=== PATIENT | female | born 1955 | race Caucasian/White ===

== ENCOUNTER → 2017-06-07 | Outpatient (CLI) | payer OTHER ==
[~2017-06-07] MED LIST: ATR10 PO; DIA5 PO; FLU20 PO; HYDR-4225 PO; LEV112 PO; LEV125 PO; LISI-368 PO; ONDA4TAB PO
--- NOTE | 2017-06-08 12:21 | RADIOLOGY IMAGING REPORT ---
FACILITY: [facility] PATIENT NAME: JESUS SAGE : [id number] MR: [id number] V: [id number] EXAM DATE: [id number] ORDERING PHYSICIAN: LACEY FATIMA TECHNOLOGIST: Di Wang PROCEDURE:BILATERAL DIGITAL SCREENING MAMMOGRAM WITH CAD ASSISTED INTERPRETATION & 3D TOMOSYNTHESIS COMPARISON:Dated 01/20/2016, 01/26/2012 & 09/03/2010 are available TECHNIQUE: Routine CC & MLO 3D tomographic images were obtained of both breasts. CAD was used. BREAST DENSITY: Scattered fibroglandular densities. INDICATIONS:screening FINDINGS: There is no dominant mass, suspicious cluster of calcifications or persistent areas of architectural distortion. DIAGNOSTIC CATEGORY 1--NEGATIVE. RECOMMENDATIONS: ROUTINE MAMMOGRAM AND CLINICAL EVALUATION IN 1 YR IMPRESSION: BIRADS 1: Negative. Dictated by: Edwardo Glynn M.D. on 06/08/2017 at 8:49 Transcribed by: NATHALY on 06/08/2017 at 11:48 Approved by: Edwardo Glynn M.D. on 06/08/2017 at 12:20 [facility]
== END ==
LOC: MAMO 01:04
PROVIDERS: ATTEND Physician Assistant
DX: Z12.31 Encounter for screening mammogram for malignant neoplasm of breast (principal)
CPT/HCPCS: 77063; 77067

== ENCOUNTER → 2017-10-08 | Outpatient (CLI) | payer OTHER ==
--- NOTE | 2017-10-08 13:01 | RADIOLOGY IMAGING REPORT ---
FACILITY: [facility] - [place] PATIENT NAME: Tejas Sauer : 1955 MR: [id number] V: [id number] EXAM DATE: ORDERING PHYSICIAN: LACEY FATIMA TECHNOLOGIST: Location: [facility] - [place] Patient: Tejas Sauer : 1955 Visit/Account:[id number] Date of Sevice: 10/08/2017 DEXA Scan Clinical history: Osteopenia. Comparison: DEXA scan from 06/21/2006. LUMBAR SPINE: The bone mineral density (BMD) measured from L1-L4 correlates with a Z-score 1.7 and a T-score of 0. 7 which is Normal as defined by the World Health Organization. The corresponding risk of fracture in the lumbar spine is Not increased compared with a young adult reference population. This value has increased by 0.8 % since the prior study. More than 5% change is considered significant. HIP: Bone mineral density (BMD) measured in the Left femoral neck region correlates with a Z-score 1.6 and a T-score of 0.5 which is Normal as defined by the World Health Organization. The corresponding r isk of fracture in the hip is Not increased compared with a young adult reference population. The tot al hip value has increased by 0.7 % since the prior study. More than 5% change is considered signifi cant. Bone mineral density (BMD) measured in the Femoral Neck region measures 1.079 g/cm2. IMPRESSION: 1. Lumbar spine: Normal. There has been No significant change in the bone mineral density since the previous exam. 2. Left Hip: Normal. There has been No significant change in the bone mineral density of the total hip since the previous exam. 3. Femoral Neck: Bone Mineral Density is 1.079 g/cm2 The next DEXA scan of this patient should include the following sites: L1-L4 and the left hip. FRAX? WHO Fracture Risk Assessment Tool link: <http://www.shef.ac.uk/FRAX/tool.jsp?locationValue=9> PLEASE NOTE: 1) The World Health Organization defines low BMD as follows: T-score Normal > -1 Osteopenia < -1 and > -2.5 Osteoporosis < -2.5 without fractures Established osteoporosis < -2.5 with fractures 2) In general, you may wish to consider: Diagnosis Treatment Follow-up DEXA Normal BMD Prevention 2-3 years Osteopenia Prevention/therapy 1-2 years Osteoporosis Therapy Yearly 3) Fracture risk estimated from the T-score is more accurate for vertebral fractures (often spontane ous) than for hip fractures. Report Dictated By: Eliezer Perez MD at 10/08/2017 12:54 PM Report E-Signed By: Eliezer Perez MD at 10/08/2017 12:55 PM WSN:[email or web address]
== END ==
LOC: RAD 00:51
PROVIDERS: ATTEND Physician Assistant
DX: Z13.820 Encounter for screening for osteoporosis (principal); N95.8 Other specified menopausal and perimenopausal disorders
CPT/HCPCS: 77080

== ENCOUNTER → 2018-07-21 | Outpatient (CLI) | payer OTHER ==
--- NOTE | 2018-07-22 12:23 | RADIOLOGY IMAGING REPORT ---
FACILITY: [facility] - [place] PATIENT NAME: JESUS SAGE : [id number] MR: [id number] V: [id number] EXAM DATE: [id number] ORDERING PHYSICIAN: LACEY FATIMA TECHNOLOGIST: Di Wang PROCEDURE:BILATERAL DIGITAL SCREENING MAMMOGRAM WITH CAD ASSISTED INTERPRETATION & 3D TOMOSYNTHESIS COMPARISON:Prior mammograms 06/07/17, 01/14/16, 01/26/2012. INDICATIONS:SCREENING FINDINGS: The breasts have scattered fibroglandular parenchymal densities. There are no mammographic findings concerning for malignancy. No significant interval change. DIAGNOSTIC CATEGORY 1--NEGATIVE. RECOMMENDATIONS: ROUTINE MAMMOGRAM AND CLINICAL EVALUATION IN 1 YR. IMPRESSION: BIRADS 1: Negative. Dictated by: Fermin Lakhani on 07/22/2018 at 9:52 Transcribed by: ILA on 07/22/2018 at 11:25 Approved by: Fermin Lakhani on 07/22/2018 at 12:22 [facility]
== END ==
LOC: MAMO 00:44
PROVIDERS: ATTEND Physician Assistant
DX: Z12.31 Encounter for screening mammogram for malignant neoplasm of breast (principal)
CPT/HCPCS: 77063; 77067